=== PATIENT | female | born 1995 | race Caucasian/White ===

== ENCOUNTER 2018-02-16 16:19 | Emergency (ER) | payer MEDICAID, OTHER ==
--- NOTE | 2018-02-16 16:30 | ED Physician Documentation ---
PD HPI SKIN - Stated complaint Stated Complaint: FULL BODY RASH - Chief complaint Chief Complaint: Allergic Rx - History obtained from History obtained from: Patient - History of Present Illness Timing - onset: Today (She slept at a friend's house, last night, they do have cats. She woke today with multiple itchy areas that have worsened throughout the day, they were only in exposed areas.) Review of Systems Constitutional: reports: Reviewed and negative Ears: reports: Reviewed and negative Throat: reports: Reviewed and negative PD PAST MEDICAL HISTORY - Past Medical History Past Medical History: No - Past Surgical History Past Surgical History: No - Present Medications Home Medications: Ambulatory Orders Medication Instructions Recorded Confirmed hydrOXYzine PAMOATE [Vistaril] 25 mg PO Q6H PRN #15 capsule 02/16/18 predniSONE [Deltasone] 60 mg PO DAILY 5 Days tablet 02/16/18 - Allergies Allergies/Adverse Reactions: Allergies Allergy/AdvReac Type Severity Reaction Status Date / Time No Known Drug Allergies Allergy Verified 02/16/18 16:26 - Social History Does the pt smoke?: Yes Smoking Status: Current every day smoker Does the pt drink ETOH?: Yes - Immunizations Immunizations are current?: Yes PD ED PE NORMAL - Vitals Vital signs reviewed: Yes - General General: Alert and oriented X 3, No acute distress - Neck Neck: Supple, no meningeal sign, No bony TTP - Derm Derm: Other (She has what look like raised bug bites, forearms, neck, little bit on the face and ankles. She says they are not in areas that were covered while she was sleeping.) - Neuro Neuro: Alert and oriented X 3, Normal speech - Psych Psych: Normal mood, Normal affect Results - Vitals Vitals: Vital Signs - 24 hr 02/16/18 16:32 Temperature 37 C Heart Rate 101 H Respiratory 19 Rate Blood Pressure 118/74 O2 Saturation 95 Oxygen O2 Source Room air Departure - Departure Disposition: 01 Home, Self Care Clinical Impression: Bug bites Qualifiers: Encounter type: initial encounter Qualified Code(s): W57.XXXA - Bitten or stung by nonvenomous insect and other nonvenomous arthropods, initial encounter Condition: Good Record reviewed to determine appropriate education?: Yes Instructions: ED Bite Sting Insect Gen Allergic React Prescriptions: hydrOXYzine PAMOATE [Vistaril] 25 mg PO Q6H PRN #15 capsule PRN Reason: Itching predniSONE [Deltasone] 60 mg PO DAILY 5 Days tablet Comments: Call your doctor to arrange a follow-up appointment, make the next available appointment. In the interim, return anytime if worse or if new symptoms develop. Discharge Date/Time: 02/16/18 16:46
[2018-02-16 16:43] VITALS: BP 118/74
== END 2018-02-16 16:46 | disposition home or self-care (01) ==
LOC: ED 16:19
DX: T14.8XXA Other injury of unspecified body region, initial encounter (principal); W57.XXXA Bitten or stung by nonvenomous insect and other nonvenomous arthropods, initial encounter; F17.200 Nicotine dependence, unspecified, uncomplicated
CPT/HCPCS: 99283

== ENCOUNTER 2018-03-16 16:42 | Emergency (ER) | payer MEDICAID ==
[2018-03-16] MEDS ORDERED: BENZONATATE 100 MG CAPSULE PO STA (17:36)
--- NOTE | 2018-03-16 17:39 | ED Physician Documentation ---
History of Present Illness - Stated complaint Stated Complaint: COUGH - Chief complaint Chief Complaint: Resp - Additonal information Additional information: hx from pt healthy 22 y/o f cough for 2 weeks also congestion ear pain sore throat no fever denies preg no travel no leg swelling Review of Systems Constitutional: denies: Fever, Chills Ears: reports: Ear pain Nose: reports: Congestion Throat: reports: Sore throat Respiratory: reports: Cough : denies: Now EGA Musculoskeletal: denies: Extremity swelling PD PAST MEDICAL HISTORY - Past Medical History Past Medical History: No - Past Surgical History Past Surgical History: Yes - Present Medications Home Medications: Ambulatory Orders Medication Instructions Recorded Confirmed Benzonatate [Tessalon] 100 mg PO TID PRN #20 capsule 03/16/18 guaiFENesin/DEXTROMETHORPHAN 10 ml PO Q6H PRN #120 ml 03/16/18 [Robitussin Dm] - Allergies Allergies/Adverse Reactions: Allergies Allergy/AdvReac Type Severity Reaction Status Date / Time hydromorphone [From Dilaudid] Allergy Anaphylaxis Verified 03/16/18 17:27 Penicillins AdvReac Emesis Verified 03/16/18 17:27 - Social History Does the pt smoke?: Yes Smoking Status: Current every day smoker Does the pt drink ETOH?: Yes Does the pt have substance abuse?: No - Immunizations Immunizations are current?: Yes PD ED PE NORMAL - Vitals Vital signs reviewed: Yes - General General: Alert and oriented X 3 - HEENT HEENT: Atraumatic. No: Ears normal (dull), Pharynx benign (injected from coughing) - Neck Neck: Supple, no meningeal sign - Cardiac Cardiac: RRR - Respiratory Respiratory: No respiratory distress, Clear bilaterally - Abdomen Abdomen: Soft, Non tender - Derm Derm: Normal color - Extremities Extremities: No edema - Neuro Neuro: No motor deficit Results - Vitals Vitals: Vital Signs - 24 hr 03/16/18 03/16/18 16:47 18:14 Temperature 36.1 C L 36.1 C L Heart Rate 108 H 95 Respiratory 18 20 Rate Blood Pressure 167/81 H 120/80 O2 Saturation 98 97 Oxygen O2 Source Room air - Rads (name of study) CXR Radiology: See rad report (neg) PD MEDICAL DECISION MAKING - ED course ED course: little tachy but productive cough and with congestion ear pain and sore throat very c/w resp infection and not suggestive of PE Departure - Departure Disposition: 01 Home, Self Care Clinical Impression: Bronchitis Condition: Good Instructions: ED Upper Resp Infec No Abx Tx Prescriptions: Benzonatate [Tessalon] 100 mg PO TID PRN #20 capsule PRN Reason: to ease cough guaiFENesin/DEXTROMETHORPHAN [Robitussin Dm] 10 ml PO Q6H PRN #120 ml PRN Reason: Cough Comments: The xray does not show any pneumonia It looks like this is a viral infection So antibiotics will not help I have prescribed medications to ease the cough and written a note for work Forms: Activity restrictions
[2018-03-16 18:14] VITALS: BP 120/80
--- NOTE | 2018-03-16 18:15 | XRAY Report ---
EXAM: CHEST RADIOGRAPHY EXAM DATE: 03/16/2018 05:52 PM. CLINICAL HISTORY: Cough. COMPARISON: Chest x-ray 06/10/2012. TECHNIQUE: 2 views. FINDINGS: Lungs/Pleura: No focal opacities evident. No pleural effusion. No pneumothorax. Normal volumes. Mediastinum: Heart and mediastinal contours are unremarkable. Other: None. IMPRESSION: Normal 2-view chest radiography. [facility] Referring Provider Line: [phone] SITE ID: [id number]
--- NOTE | 2018-03-16 18:59 | XRAY Preliminary Report ---
Exam: XR ANKLE 2 VIEW RT IMPRESSION: 1. No acute fracture or dislocation. 2. Status post open reduction internal fixation distal right fibula. Alignment is anatomic. No hardwa re fracture seen. [facility] SITE ID: [id number]
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
== END 2018-03-16 19:20 | disposition home or self-care (01) ==
LOC: ED 16:42
DX: J40 Bronchitis, not specified as acute or chronic (principal); M25.571 Pain in right ankle and joints of right foot; F17.200 Nicotine dependence, unspecified, uncomplicated; Z87.81 Personal history of (healed) traumatic fracture
CPT/HCPCS: 71046; 73600; 99283; A9270

== ENCOUNTER 2019-09-13 00:42 | Outpatient (CLI) | payer OTHER | END 2019-09-13 00:43 | disposition critical access hospital (66) | LOC: EMS 00:42 | PROVIDERS: ATTEND Surgery | DX: S09.90XA Unspecified injury of head, initial encounter (principal); Y00.XXXA Assault by blunt object, initial encounter | CPT/HCPCS: A0425; A0429 ==

== ENCOUNTER 2019-09-13 00:58 | Emergency (ER) | payer MEDICAID, OTHER ==
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
[2019-09-13 02:33] VITALS: BP 134/90
== END 2019-09-13 02:38 | disposition home or self-care (01) ==
LOC: EDUNIT# → ED 00:58
DX: S06.2X0A Diffuse traumatic brain injury without loss of consciousness, initial encounter (principal); Y08.89XA Assault by other specified means, initial encounter; Y93.F9 Activity, other caregiving; Y92.009 Unspecified place in unspecified non-institutional (private) residence as the place of occurrence of the external cause; F17.200 Nicotine dependence, unspecified, uncomplicated
CPT/HCPCS: 99281; 99282